=== PATIENT | female | born 1950 | race Caucasian/White ===

== ENCOUNTER 2017-03-28 12:36 | Emergency (ER) | payer BC ==
[2017-03-28 14:03] LABS: Hematocrit 41 % (35-47); Hemoglobin 13.5 g/dl (12.0-16.0); Mean Corpuscular HGB Conc 33 g/dl (31-36); Mean Corpuscular Hemoglobin 28 pg (27-31); Mean Corpuscular Volume 85 fL (80-97); Mean Platelet Volume 7 um3 (7.4-10.4); Red Blood Count 4.76 10^6/ul (4.0-5.4); Red Cell Distribution Width 14 % (10.5-15); White Blood Count 12.7 10^3/ul (3.5-10.8)
[2017-03-28 14:22] LABS: Albumin 4.3 g/dL (3.2-5.2); BUN/Creatinine Ratio 28.8 (8-20); Calcium 9.7 mg/dL (8.6-10.3); EGFR African American 151.7 (>60); Globulin 2.8 g/dL (2-4); Potassium 3.8 mmol/L (3.5-5.0); Total Bilirubin 0.5 mg/dL (0.2-1.0); Total Protein 7.1 g/dL (6.4-8.9)
[2017-03-28 14:34] LABS: C Reactive Protein 14.89 mg/L (< 5.00)
--- NOTE | 2017-03-28 14:42 | RAD ---
Indication: Hypertension, dizziness. Single frontal view of the chest performed at 1420 hours was reviewed. Comparison is made with previous exam dated October 30, 2014. No mediastinal shift is noted. Heart is of normal size and configuration. Lung culver appear clear. IMPRESSION: NO ACTIVE CARDIOPULMONARY DISEASE IS NOTED.
[2017-03-28 15:27] LABS: Erythrocyte Sed Rate 32 mm/Hr (0-40)
--- NOTE | 2017-03-28 16:03 | ED ---
Abdiel Mesa Anna, scribed for Bong Carrillo MD on 03/28/17 at 1405 . Hypertension - HPI Summary HPI Summary: Patient is a 66 y/o female coming to [facility] presenting with the sudden onset of elevated blood pressure that began this morning at 1100 today. She was at physical therapy because of her fibromyalgia and rheumatica. This is her second week of physical therapy. She reports having arm pain and knee pain for the last eight months, 5/10 severity at baseline. After her physical treatment, her pain severity was 6/10 and she felt dizzy. Her face felt flushed, and they took her BP. Her BP is usually 140 at home. Historically, it has risen to 160, 180. Today, it was 195/95, and her physical therapist sent her to the ED. Her BP was 208/70 at triage. She has a dull DAO right now, which she attributes to missing lunch. She denies CP. Her history is significant for HTN, and she started on low dose BP meds, hydrochlorothiazide, several months ago. She also takes Prednisone for inflammation and is being weaned off. - History of Current Complaint Chief Complaint: EDHypertension Stated Complaint: HIGH BP Time Seen by Provider: 03/28/17 13:57 Hx Obtained From: Patient, Family/Java Lead - Accompaniedy by Onset/Duration: Started Hours Ago Aggravating Factor(s): Other: - Pain Associated Signs & Symptoms: Dizziness - Allergies/Home Medications Allergies/Adverse Reactions: Allergies Allergy/AdvReac Type Severity Reaction Status Date / Time No Known Allergies Allergy Verified 03/28/17 12:39 Home Medications: Home Medications Prednisone 5 mg PO DAILY 03/28/17 [History Confirmed 03/28/17] PMH/Surg Hx/FS Hx/Imm Hx Cardiovascular History: Reports: Hx Hypertension Musculoskeletal History: Reports: Hx Fibromyalgia, Other Musculoskeletal History - rheumatica - Cancer History Hx Chemotherapy: No Hx Radiation Therapy: No - Immunization History Date of Tetanus Vaccine: UTD Date of Influenza Vaccine: NO Infectious Disease History: No Infectious Disease History: Denies: Traveled Outside the [place] in Last 30 Days - Family History Known Family History: Positive: Other - Hx scleroderma in mother - Social History Lives: With Family Alcohol Use: Rare Substance Use Type: Reports: None Smoking Status (MU): Former Smoker Amount Used/How Often: Quit in 2012 Review of Systems Constitutional: Other - flushed face, elevated BP Negative: Chest Pain Positive: Myalgia - baseline, somewhat elevated by physical therapy Neurological: Other - dizziness All Other Systems Reviewed And Are Negative: Yes Physical Exam Triage Information Reviewed: Yes Vital Signs On Initial Exam: Initial Vitals Temp Pulse Resp BP Pulse Ox 98.4 F 89 16 208/70 97 03/28/17 12:39 03/28/17 12:39 03/28/17 12:39 03/28/17 12:39 03/28/17 12:39 Vital Signs Reviewed: Yes Appearance: Positive: Well-Appearing, No Pain Distress Skin: Positive: Warm, Skin Color Reflects Adequate Perfusion, Dry Head/Face: Positive: Normal Head/Face Inspection Eyes: Positive: EOMI, MAINOR ENT: Positive: Normal ENT inspection Neck: Positive: Supple, Nontender Respiratory/Lung Sounds: Positive: Clear to Auscultation, Breath Sounds Present Cardiovascular: Positive: RRR Abdomen Description: Positive: Nontender, Soft Bowel Sounds: Positive: Present Musculoskeletal: Positive: Other - Decreased ROM in shoulder. Calves nontender bilaterally.. Negative: Edema Left, Edema Right Neurological: Positive: Normal, Sensory/Motor Intact, Alert, Oriented to Person Place, Time Psychiatric: Positive: Affect/Mood Appropriate - Jia Coma Scale Coma Scale Total: 15 Diagnostics - Vital Signs Vital Signs Temp Pulse Resp BP Pulse Ox 03/28/17 13:39 12 181/62 03/28/17 13:04 98.4 F 89 16 208/70 97 03/28/17 12:39 98.4 F 89 16 208/70 97 - Laboratory Lab Results: Lab Results 03/28/17 03/28/17 03/28/17 Range/Units 13:50 13:50 13:50 WBC 12.7 H (3.5-10.8) 10^3/ul RBC 4.76 (4.0-5.4) 10^6/ul Hgb 13.5 (12.0-16.0) g/dl Hct 41 (35-47) % MCV 85 (80-97) fL MCH 28 (27-31) pg MCHC 33 (31-36) g/dl RDW 14 (10.5-15) % Plt Count 305 (150-450) 10^3/ul MPV 7 L (7.4-10.4) um3 Neut % (Auto) 78.7 (38-83) % Lymph % (Auto) 16.7 L (25-47) % Woodson % (Auto) 3.4 (1-9) % Eos % (Auto) 0.2 (0-6) % Baso % (Auto) 1.0 (0-2) % Absolute Neuts (auto) 10.0 H (1.5-7.7) 10^3/ul Absolute Lymphs (auto) 2.1 (1.0-4.8) 10^3/ul Absolute Monos (auto) 0.4 (0-0.8) 10^3/ul Absolute Eos (auto) 0 (0-0.6) 10^3/ul Absolute Basos (auto) 0.1 (0-0.2) 10^3/ul Absolute Nucleated RBC 0 10^3/ul Nucleated RBC % 0 ESR 32 (0-40) mm/Hr Sodium 134 (133-145) mmol/L Potassium 3.8 (3.5-5.0) mmol/L Chloride 97 L (101-111) mmol/L Carbon Dioxide 26 (22-32) mmol/L Anion Gap 11 (2-11) mmol/L BUN 15 (6-24) mg/dL Creatinine 0.52 (0.51-0.95) mg/dL Est GFR ( Amer) 151.7 (>60) Est GFR (Non-Af Amer) 118.0 (>60) BUN/Creatinine Ratio 28.8 H (8-20) Glucose 99 (70-100) mg/dL Lactic Acid 0.6 (0.5-2.0) mmol/L Calcium 9.7 (8.6-10.3) mg/dL Total Bilirubin 0.50 (0.2-1.0) mg/dL AST 18 (13-39) U/L ALT 15 (7-52) U/L Alkaline Phosphatase 53 (34-104) U/L Troponin I 0.00 (<0.04) ng/mL C-Reactive Protein 14.89 H (< 5.00) mg/L B-Natriuretic Peptide ( - 100) pg/mL Total Protein 7.1 (6.4-8.9) g/dL Albumin 4.3 (3.2-5.2) g/dL Globulin 2.8 (2-4) g/dL Albumin/Globulin Ratio 1.5 (1-3) 03/28/17 Range/Units 13:50 WBC (3.5-10.8) 10^3/ul RBC (4.0-5.4) 10^6/ul Hgb (12.0-16.0) g/dl Hct (35-47) % MCV (80-97) fL MCH (27-31) pg MCHC (31-36) g/dl RDW (10.5-15) % Plt Count (150-450) 10^3/ul MPV (7.4-10.4) um3 Neut % (Auto) (38-83) % Lymph % (Auto) (25-47) % Woodson % (Auto) (1-9) % Eos % (Auto) (0-6) % Baso % (Auto) (0-2) % Absolute Neuts (auto) (1.5-7.7) 10^3/ul Absolute Lymphs (auto) (1.0-4.8) 10^3/ul Absolute Monos (auto) (0-0.8) 10^3/ul Absolute Eos (auto) (0-0.6) 10^3/ul Absolute Basos (auto) (0-0.2) 10^3/ul Absolute Nucleated RBC 10^3/ul Nucleated RBC % ESR (0-40) mm/Hr Sodium (133-145) mmol/L Potassium (3.5-5.0) mmol/L Chloride (101-111) mmol/L Carbon Dioxide (22-32) mmol/L Anion Gap (2-11) mmol/L BUN (6-24) mg/dL Creatinine (0.51-0.95) mg/dL Est GFR ( Amer) (>60) Est GFR (Non-Af Amer) (>60) BUN/Creatinine Ratio (8-20) Glucose (70-100) mg/dL Lactic Acid (0.5-2.0) mmol/L Calcium (8.6-10.3) mg/dL Total Bilirubin (0.2-1.0) mg/dL AST (13-39) U/L ALT (7-52) U/L Alkaline Phosphatase (34-104) U/L Troponin I (<0.04) ng/mL C-Reactive Protein (< 5.00) mg/L B-Natriuretic Peptide 55 ( - 100) pg/mL Total Protein (6.4-8.9) g/dL Albumin (3.2-5.2) g/dL Globulin (2-4) g/dL Albumin/Globulin Ratio (1-3) Result Diagrams: 03/28/17 13:50 03/28/17 13:50 Lab Statement: Any lab studies that have been ordered have been reviewed, and results considered in the medical decision making process. - Radiology CXR Xray Interpretation: No Acute Changes Radiology Interpretation Completed By: Radiologist - IMPRESSION: NO ACTIVE CARDIOPULMONARY DISEASE IS NOTED. - EKG 1330 Cardiac Rate: NL - 83 bpm EKG Rhythm: Sinus Rhythm ST Segment: Normal Ectopy: PVCs Re-Evaluation - Re-Evaluation First Eval Re-Evaluation Time: 15:59 Comment: Discussed results and plan of care with patient. Patient agrees with plan. Hypertension Course/Dx - Course Course Of Treatment: NO CRITICAL CARE TIME Assessment/Plan: BP DECREASED AT REST IN ED. NAD IN ED. DISCUSSED RESULTS WITH PATIENT/. DISCHARGE HOME STABLE. - Diagnoses Provider Diagnoses: Hypertension Discharge - Discharge Plan Condition: Stable Disposition: HOME Patient Education Materials: Hypertension (ED) Referrals: Elsie Richter MD [Primary Care Provider] - Additional Instructions: FOLLOW UP WITH YOUR DOCTOR. CALL TOMORROW, 03/29/17, TO DETERMINE IF YOU NEED TO CHANGE YOUR BLOOD PRESSURE MEDICATION. RETURN TO THE EMERGENCY DEPARTMENT FOR ANY WORSENING OF YOUR CONDITION; CHEST PAIN, YOU FEEL ILL OR QUESTIONS OR CONCERNS. The documentation as recorded by the Abdiel hinton Anna accurately reflects the service I personally performed and the decisions made by me, Bong Carrillo MD.
[2017-03-28 16:17] VITALS: BP 159/84
== END 2017-03-28 16:16 | disposition home or self-care (01) ==
LOC: ED 12:36
DX: I10 Essential (primary) hypertension (principal); Z87.891 Personal history of nicotine dependence; M79.7 Fibromyalgia; M35.3 Polymyalgia rheumatica; Z79.52 Long term (current) use of systemic steroids
CPT/HCPCS: 36415; 71010; 80053; 83605; 83880; 84484; 85025; 85652; 86140; 93005; 99283